=== PATIENT | male | born 1980 | race Caucasian/White ===

== ENCOUNTER 2018-01-07 03:52 | Observation (INO) | payer MEDICAID, OTHER ==
[~2018-01-07] VITALS: Ht 182.9 cm; Wt 98.0 kg
[2018-01-07] MEDS ORDERED: LORazepam 1MG TABLET PO ONE (04:00)
[2018-01-07] MEDS ORDERED: ZIPRASIDONE 20 MG INJ IM ONE (04:00)
[2018-01-07 04:21] LABS: BASOPHILS # (AUTO) 0.02 x10^3/uL (0-0.1); BASOPHILS % (AUTO) 0 % (0-1); EOSINOPHILS # (AUTO) 0.18 x10^3/uL (0-0.4); EOSINOPHILS % (AUTO) 2 % (1-7); LYMPHOCYTES % (AUTO) 17 % (22-44); MD NO; MEAN CORPUSCULAR HGB CONC 33.5 g/dL (33.2-36.2); MEAN CORPUSCULAR VOLUME 86.6 fL (81-97); MEAN PLATELET VOLUME 9.5 fL (7.4-10.4); MONOCYTES # (AUTO) 1.26 x10^3/uL (0.2-0.8); MONOCYTES % (AUTO) 10 % (2-9); NEUTROPHILS # (AUTO) 8.61 x10^3/uL (1.8-6.8); NEUTROPHILS % (AUTO) 71 % (42-75); PLATELET COUNT 252 x10^3/uL (130-400); RED BLOOD COUNT 5.33 x10^6/uL (4.38-5.82); RED CELL DISTRIBUTION WIDTH 15.1 % (9.4-14.8)
[2018-01-07] MEDS ORDERED: MAALOX/HYOSCYAMINE/LIDOCAINE 45 ML BTL ONE (04:27)
[2018-01-07 04:32] LABS: ALBUMIN 3.6 g/dL (3.4-5.0); ANION GAP 7 mmol/L (5-15); CHLORIDE 108 mmol/L (98-107)
[2018-01-07 04:33] LABS: CREATININE 1.18 mg/dL (0.7-1.3)
[2018-01-07 04:34] LABS: ACETAMINOPHEN < 2 mcg/mL (10-30)
[2018-01-07 04:35] LABS: SALICYLATE LEVEL < 1.7 mg/dL (2.8-20.0)
[2018-01-07] MEDS ORDERED: SEROQUEL (04:46)
[2018-01-07] MEDS ORDERED: MAALOX/HYOSCYAMINE/LIDOCAINE 45 ML BTL PO ONE (05:00)
[2018-01-07 11:29] LABS: AMPHETAMINE SCREEN, URINE Positive (Negative); BARBITURATE SCREEN, URINE Negative (Negative); BENZODIAZEPINE SCREEN, URINE Negative (Negative); CANNABINOID SCREEN, URINE Positive (Negative); COCAINE SCREEN, URINE Negative (Negative); METHADONE SCREEN, URINE Negative (Negative); OPIATE SCREEN, URINE Positive (Negative)
[2018-01-07] MEDS: NICOTINE 14MG/24 HR PATCH.TD24 TD SCH (12:53)
[2018-01-07] MEDS ORDERED: POLYETHYLENE GLYCOL 17 GM PACKET PO PRN (13:00)
[2018-01-07] MEDS ORDERED: ONDANSETRON ODT 4 MG PO PRN (13:00)
[2018-01-07 13:15] LABS: FREE T4 (FREE THYROXINE) 1.12 ng/dL (0.76-1.46); THYROID STIMULATING HORMONE 2.17 mIU/L (0.358-3.740)
[2018-01-07 14:09] VITALS: BP 121/66
[2018-01-07 20:17] VITALS: BP 121/77
[2018-01-07] MEDS ORDERED: ALUMINUM/MAG/SIMETHICONE 30 ML UDC PO PRN (20:30)
[2018-01-07] MEDS ORDERED: PLEASE ENTER HEIGHT AND WEIGHT MC SCH (20:30)
[2018-01-08 05:34] LABS: BASOPHILS # (AUTO) 0.04 x10^3/uL (0-0.1); BASOPHILS % (AUTO) 0 % (0-1); EOSINOPHILS # (AUTO) 0.41 x10^3/uL (0-0.4); EOSINOPHILS % (AUTO) 4 % (1-7); LYMPHOCYTES # (AUTO) 2.54 x10^3/uL (1-3.4); LYMPHOCYTES % (AUTO) 25 % (22-44); MD NO; MEAN CORPUSCULAR HEMOGLOBIN 29.2 pg (27.5-34.5); MEAN CORPUSCULAR HGB CONC 33.8 g/dL (33.2-36.2); MEAN CORPUSCULAR VOLUME 86.5 fL (81-97); MEAN PLATELET VOLUME 9.9 fL (7.4-10.4); MONOCYTES # (AUTO) 0.97 x10^3/uL (0.2-0.8); MONOCYTES % (AUTO) 10 % (2-9); NEUTROPHILS # (AUTO) 6.26 x10^3/uL (1.8-6.8); NEUTROPHILS % (AUTO) 61 % (42-75); PLATELET COUNT 235 x10^3/uL (130-400); RED BLOOD COUNT 5.56 x10^6/uL (4.38-5.82); RED CELL DISTRIBUTION WIDTH 15.2 % (9.4-14.8)
[2018-01-08 05:52] LABS: ALBUMIN 3.1 g/dL (3.4-5.0); ANION GAP 8 mmol/L (5-15); CALCIUM 8.8 mg/dL (8.5-10.1); CHLORIDE 107 mmol/L (98-107)
[2018-01-08 05:56] LABS: ALANINE AMINOTRANSFERASE 28 U/L (12-78); ALKALINE PHOSPHATASE 67 U/L (45-117); BILIRUBIN,TOTAL 0.7 mg/dL (0.2-1.0); CREATININE 0.94 mg/dL (0.7-1.3); TOTAL PROTEIN 6.8 g/dL (6.4-8.2)
[2018-01-08] MEDS: SENNA/DOCUSATE TABLET PO SCH (08:37)
[2018-01-08 09:00] VITALS: BP 126/85
[2018-01-08] MEDS: LORazepam 1MG TABLET PO PRN ×2 (11:10→16:31)
[2018-01-08] MEDS: NICOTINE 14MG/24 HR PATCH.TD24 TD SCH (12:23)
[2018-01-08] MEDS ORDERED: ZIPRASIDONE 20 MG INJ IM ONE ×2 (17:51→18:00)
[2018-01-08 21:54] VITALS: BP 153/90
[2018-01-09] MEDS: SENNA/DOCUSATE TABLET PO SCH (07:34)
[2018-01-09] MEDS: LORazepam 1MG TABLET PO PRN ×2 (07:34→12:34)
[2018-01-09 08:25] VITALS: BP 151/80
[2018-01-09] MEDS: NICOTINE 14MG/24 HR PATCH.TD24 TD SCH (12:35)
[2018-01-09] MEDS ORDERED: ZIPRASIDONE 20 MG INJ IM ONE ×2 (15:05→15:30)
[2018-01-09 20:26] VITALS: BP 134/82
[2018-01-09] MEDS ORDERED: QUETIAPINE 100MG TABLET PO ONE (21:00)
[2018-01-10 08:03] VITALS: BP 134/83
[2018-01-10] MEDS: SENNA/DOCUSATE TABLET PO SCH (09:00)
[2018-01-10] MEDS: LORazepam 1MG TABLET PO PRN (12:42)
[2018-01-10] MEDS: NICOTINE 14MG/24 HR PATCH.TD24 TD SCH (14:41)
== END 2018-01-10 16:17 ==
LOC: ED 05:40 → EDIP 11:22 → 3E 14:07
PROVIDERS: ADMIT Hospitalist; ATTEND Hospitalist
DX: F23 Brief psychotic disorder (principal); F41.1 Generalized anxiety disorder; F10.10 Alcohol abuse, uncomplicated; F11.20 Opioid dependence, uncomplicated; F15.10 Other stimulant abuse, uncomplicated; F17.200 Nicotine dependence, unspecified, uncomplicated; D72.829 Elevated white blood cell count, unspecified; Z65.3 Problems related to other legal circumstances
CPT/HCPCS: 36415; 80048; 80053; 80307; 80329; 82040; 84439; 84443; 85025; 93005; 96372; 99285; G0378; J3486; G0480